=== PATIENT | male | born 1965 | race Caucasian/White ===

== ENCOUNTER 2017-12-21 11:26 | Emergency (ER) | payer OTHER ==
--- NOTE | 2017-12-21 11:46 | EDPHY ---
H & P Stated Complaint: DYSPNEA WITH EXERTION/RX ABX BUT WAS TOLD SHOULD GET SCREENING EKG Time Seen by Provider: 12/21/17 11:46 HPI/ROS: CHIEF COMPLAINT: Dyspnea, hypertension HISTORY OF PRESENT ILLNESS: The patient presents to the ED for evaluation of chronic dyspnea he is been experiencing however worsening over the past week. The patient was diagnosed with Lyme disease after he developed a skin rash consistent with erythema migrans while in [place] earlier this summer. The patient has been on 2 antibiotics and is currently under the care of Lyme disease specialist. The patient reports he has been struggling with dyspnea for some time. The patient does have a history of hypertension but has noted markedly increasing blood pressure recently. He presents to the ED today requesting further workup. The patient denies any history of chest pain but does report increasing dyspnea on exertion. He denies PND, fever or cough. The patient has no complaints of acute arthralgias, asymmetric calf pain or swelling. REVIEW OF SYSTEMS: A comprehensive 10 point review of systems is otherwise negative aside from elements mentioned in the history of present illness. Source: Patient - Personal History Current Tetanus/Diphtheria Vaccine: Yes - Medical/Surgical History Hx Asthma: No Hx Chronic Respiratory Disease: No Hx Diabetes: No Hx Cardiac Disease: No Hx Renal Disease: No Hx Cirrhosis: No Hx Alcoholism: No Hx HIV/AIDS: No Hx Splenectomy or Spleen Trauma: No Other PMH: HTN/DEPRESSION - Social History Smoking Status: Never smoked - Physical Exam Exam: General Appearance: Alert, no distress Eyes: Pupils equal and round no pallor or injection ENT, Mouth: Mucous membranes moist Respiratory: There are no retractions, lungs are clear to auscultation Cardiovascular: Regular rate and rhythm Gastrointestinal: Abdomen is soft and nontender, no masses, bowel sounds normal Neurological: A&O, normal motor function, normal sensory exam, normal cranial nerves Skin: Warm and dry, no rashes Musculoskeletal: Neck is supple nontender Extremities: symmetrical, full range of motion Psychiatric: Patient is oriented X 3, there is no agitation Constitutional: Initial Vital Signs Temperature (C) 37.1 C 12/21/17 11:29 Heart Rate 88 12/21/17 11:29 Respiratory Rate 18 12/21/17 11:29 Blood Pressure 200/137 H 12/21/17 11:29 O2 Sat (%) 96 12/21/17 11:29 O2 Delivery Mode Room Air Allergies/Adverse Reactions: No Known Allergies Allergy (Unverified 12/21/17 11:28) Home Medications: Medication Instructions Recorded Azithromycin 12/21/17 Cefdinir 12/21/17 Prozac 10 MG (*) 12/21/17 Medical Decision Making - Diagnostics EKG Interpretation: EKG: Complete interpretation has been separately recorded in the [facility] archive. Summary impression: Sinus rhythm, rate 84, no ischemic changes noted Imaging Results: Imaging Impressions Chest X-Ray 12/21/17 12:08 Impression: No acute findings in the chest. ED Course/Re-evaluation: The patient presents the emergency department with increasing dyspnea over the past several months. The patient was noted to be hypertensive upon arrival with systolic blood pressure in the 200-230 range. The patient's EKG demonstrates no evidence of ischemia. He has no hypoxemia. The patient's chest x-ray demonstrates no evidence of heart failure. Patient's troponin is normal. The patient's blood pressure did come down to 180/120 in the emergency department. I did curbside Dr. Deleon from Cardiology. The patient will be started on 5 mg of Norvasc today. The patient will purchase a blood pressure cuff monitor. The patient is interested in establishing primary care here in [facility]. He does not have a primary care provider. He has been referred to Dr. Serrato at the [facility] for a follow-up visit. The patient has been advised to return to the ED for any markedly worsening chest pain or shortness of breath. Differential Diagnosis: Differential diagnosis considered includes pneumonia, pneumothorax, myocardial infarction, congestive heart failure, primary hypertension - Data Points Laboratory Results: Laboratory Results 12/21/17 11:56 12/21/17 11:56 12/21/17 12/21/17 11:56 11:56 WBC 7.99 10^3/uL 10^3/uL (3.80-9.50) RBC 5.32 10^6/uL 10^6/uL (4.40-6.38) Hgb 15.4 g/dL g/dL (13.7-17.5) Hct 43.2 % % (40.0-51.0) MCV 81.2 fL L fL (81.5-99.8) MCH 28.9 pg pg (27.9-34.1) MCHC 35.6 g/dL g/dL (32.4-36.7) RDW 12.9 % % (11.5-15.2) Plt Count 281 10^3/uL 10^3/uL (150-400) MPV 10.3 fL fL (8.7-11.7) Neut % (Auto) 54.0 % % (39.3-74.2) Lymph % (Auto) 34.9 % % (15.0-45.0) [place] % (Auto) 7.4 % % (4.5-13.0) Eos % (Auto) 2.8 % % (0.6-7.6) Baso % (Auto) 0.6 % % (0.3-1.7) Nucleat RBC Rel Count 0.0 % % (0.0-0.2) Absolute Neuts (auto) 4.32 10^3/uL 10^3/uL (1.70-6.50) Absolute Lymphs (auto) 2.79 10^3/uL 10^3/uL (1.00-3.00) Absolute Monos (auto) 0.59 10^3/uL 10^3/uL (0.30-0.80) Absolute Eos (auto) 0.22 10^3/uL 10^3/uL (0.03-0.40) Absolute Basos (auto) 0.05 10^3/uL 10^3/uL (0.02-0.10) Absolute Nucleated RBC 0.00 10^3/uL 10^3/uL (0-0.01) Immature Gran % 0.3 % % (0.0-1.1) Immature Gran # 0.02 10^3/uL 10^3/uL (0.00-0.10) Sodium 140 mEq/L mEq/L (135-145) Potassium 4.0 mEq/L mEq/L (3.3-5.0) Chloride 104 mEq/L mEq/L (97-110) Carbon Dioxide 26 mEq/l mEq/l (22-31) Anion Gap 10 mEq/L mEq/L (6-14) BUN 19 mg/dL mg/dL (7-23) Creatinine 0.7 mg/dL mg/dL (0.7-1.3) Estimated GFR > 60 Glucose 102 mg/dL H mg/dL (70-100) Calcium 10.1 mg/dL mg/dL (8.5-10.4) Troponin I < 0.012 ng/mL ng/mL (0.000-0.034) NT-Pro-B Natriuret Pep 26 pg/mL pg/mL (0-125) Medications Given: Discontinued Medications Amlodipine Besylate (Norvasc) 5 mg PO EDNOW ONE Stop: 12/21/17 13:11 Last Admin: 12/21/17 13:21 Dose: 5 mg Departure - Departure Disposition: Home, Routine, Self-Care Clinical Impression: Hypertension Condition: Good Instructions: Hypertension (ED) Additional Instructions: 1. Please begin Norvasc once a day as prescribed. I do recommend getting a blood pressure monitor and keeping a log of your blood pressure each morning and night. 2. Please contact Dr. Serrato to schedule a primary care visit within the next week. Please be sure to tell her that you were in the emergency department and referred to her office for a ER follow-up. 3. Return to the ED for markedly worsening chest pain, shortness of breath or other concerns. Referrals: Aundrea Serrato MD [[facility] Primary Care Provider] - As per Instructions
[2017-12-21 12:14] LABS: PLATELET COUNT 281 10^3/uL (150-400)
[2017-12-21] MEDS ORDERED: amLODIPine BESYLATE 5 MG TAB PO ONE (13:10)
--- NOTE | 2017-12-21 13:40 | CPEKG ---
Test Reason : OPEN Blood Pressure : / mmHG Vent. Rate : 084 BPM Atrial Rate : 084 BPM P-R Int : 179 ms QRS Dur : 106 ms QT Int : 379 ms P-R-T Axes : 050 -09 046 degrees QTc Int : 449 ms Sinus rhythm Confirmed by Warren Lind ([id number]) on 12/21/2017 1:39:37 PM Referred By: Confirmed By:Warren Lind
[2017-12-21 13:58] VITALS: BP 182/117
== END 2017-12-21 13:58 | disposition home or self-care (01) ==
DX: I10 Essential (primary) hypertension (principal); R06.09 Other forms of dyspnea; A69.20 Lyme disease, unspecified

== ENCOUNTER 2018-01-29 05:31 | Emergency (ER) | payer OTHER ==
--- NOTE | 2018-01-29 06:06 | EDPHY ---
H & P Stated Complaint: possible blood clot in L upper arm Time Seen by Provider: 01/29/18 05:48 HPI/ROS: HPI The patient presents with left arm edema and pain for the last 2-3 days which has gotten progressively worse. He is currently undergoing treatment for chronic Lyme disease with 3 times weekly IV injections into his left arm. This is occurring in [place]. He does not have any redness or warmth of the arm. He has not had any fevers. He says about 5 years ago he had history of similar and was admitted to the hospital for 2 days but was unsure if he received anticoagulation. He denies any other symptoms.. REVIEW OF SYSTEMS 10 systems were reviewed and negative with the exception of the elements mentioned in the history of present illness. PMHx: Recent diagnosis of chronic Lyme disease receiving IV antibiotic infusions, recent diagnosis of hypertension Soc Hx: Living in between [place] and [place] PHYSICAL General Appearance: Alert, no distress Eyes: Pupils equal and round no pallor or injection ENT, Mouth: Mucous membranes moist Respiratory: There are no retractions, lungs are clear to auscultation Cardiovascular: Regular rate and rhythm Gastrointestinal: Abdomen is soft and non-tender, no masses, bowel sounds normal Neurological: A&O, moves all extremities Skin: Warm and dry, no rashes Musculoskeletal: Neck is supple non tender Extremities: Left upper arm is slightly tender to palpation in medial aspect with no overlying skin changes, there is mild edema, there is 2+ radial pulses Psychiatric: Patient is oriented X 3, there is no agitation Source: Patient Exam Limitations: No limitations - Personal History Current Tetanus/Diphtheria Vaccine: Yes Current Tetanus Diphtheria and Acellular Pertussis (TDAP): Yes - Medical/Surgical History Hx Asthma: No Hx Chronic Respiratory Disease: No Hx Diabetes: No Hx Cardiac Disease: No Hx Renal Disease: No Hx Cirrhosis: No Hx Alcoholism: No Hx HIV/AIDS: No Hx Splenectomy or Spleen Trauma: No Other PMH: HTN/DEPRESSION - Social History Smoking Status: Current some day smoker Constitutional: Initial Vital Signs Temperature (C) 36.6 C 01/29/18 05:37 Heart Rate 63 01/29/18 05:37 Respiratory Rate 16 01/29/18 05:37 Blood Pressure 162/95 H 01/29/18 05:37 O2 Sat (%) 96 01/29/18 05:37 O2 Delivery Mode Room Air Allergies/Adverse Reactions: Beef Containing Products [beef] Allergy (Verified 01/29/18 05:36) Milk Containing Products [dairy] Allergy (Verified 01/29/18 05:36) Home Medications: Medication Instructions Recorded Azithromycin 12/21/17 Cefdinir 12/21/17 Prozac 10 MG (*) 12/21/17 amLODIPine BESYLATE [Norvasc 5 mg 5 mg PO DAILY #30 tab 12/21/17 (*)] Rivaroxaban [Xarelto] 1 each PO ONCE 30 Days tab.ds.pk 01/29/18 Medical Decision Making - Diagnostics Imaging Results: DVT study of left upper extremity demonstrates clots in the basilic and cephalic veins, discussed with Dr. Olmedo of Radiology. Imaging: Discussed imaging studies w/ on call Radiologist, I viewed and interpreted images myself Differential Diagnosis: 52-year-old man with left arm pain and swelling for the last several days in the setting of frequent IV antibiotics to the left arm for the last 3-4 weeks for treatment of chronic Lyme disease. He may have had a prior DVT of this arm about 5 years ago though it is unclear. Differential diagnosis includes DVT, superficial thrombophlebitis, less likely cellulitis. In the emergency department, ultrasound was performed which demonstrated blood clots sparing the deep system though fairly extensively throughout the superficial venous system. The patient does not have a indwelling IV line though has received IV placements very frequently over the last several weeks. This seems to be a provoked upper extremity DVT. I do not feel further testing is needed today. Because he is symptomatic and has fairly extensive superficial clots, we discussed risks and benefits of anticoagulation verses treating with supportive measures including NSAIDs, elevation. He would like to pursue anticoagulation to improve his symptoms. I will prescribe him 1 month of Xarelto. I have explained that he will definitely need follow-up with his primary care doctor in 1 months time. He may need ongoing treatment with anticoagulation at this point if he is still symptomatic. He may need repeat ultrasound to evaluate for clot burden. We discussed return precautions. Departure - Departure Disposition: Home, Routine, Self-Care Clinical Impression: Phlebitis of left upper extremity Condition: Good Instructions: Phlebitis (ED) Additional Instructions: I recommend you take a blood thinner for the next 1 month. After that you will have to see your primary care doctor. You may need to be on this medication for the next several months. You may need to have a repeat ultrasound as well. Referrals: Aundrea Serrato MD [Primary Care Provider] - As per Instructions Prescriptions: Rivaroxaban [Xarelto] 1 each PO ONCE 30 Days tab.ds.pk
[2018-01-29 06:55] VITALS: BP 138/75
== END 2018-01-29 06:54 | disposition home or self-care (01) ==
DX: I80.9 Phlebitis and thrombophlebitis of unspecified site (principal); R22.32 Localized swelling, mass and lump, left upper limb; A69.20 Lyme disease, unspecified; I10 Essential (primary) hypertension; F32.9 Major depressive disorder, single episode, unspecified; F17.200 Nicotine dependence, unspecified, uncomplicated; Z79.2 Long term (current) use of antibiotics

== ENCOUNTER 2018-01-31 15:06 | Emergency (ER) | payer OTHER ==
--- NOTE | 2018-01-31 15:33 | EDPHY ---
H & P Stated Complaint: DVT L upper arm 01/29--increased pain & swelling on xarelto - Medical/Surgical History Hx Asthma: No Hx Chronic Respiratory Disease: No Hx Diabetes: No Hx Cardiac Disease: No Hx Renal Disease: No Hx Cirrhosis: No Hx Alcoholism: No Hx HIV/AIDS: No Hx Splenectomy or Spleen Trauma: No Other PMH: HTN lyme disease. DEPRESSION - Social History Smoking Status: Current some day smoker Time Seen by Provider: 01/31/18 15:17 HPI/ROS: CHIEF COMPLAINT: Worsening Left arm pain HISTORY OF PRESENT ILLNESS: [52-year-old male history Lyme disease for which he receives 3 times weekly IV medication infusion do left arm in [place]. He spends his time between [facility] and [place]. He was seen the ER 3 days ago for complaints of left upper extremity pain, diagnosed with thrombus sparing the deep system so fairly extensively throughout superficial venous system with no history of indwelling IV line although receives regular IV placements thought to be provoked DVT. Because he was symptomatic with extensive superficial clots he was started on Xarelto. Due to pharmacy issues he was unable to start the prescription until today. He comes to the ER complaining of pain to his left bicep noting that previously the pain is primarily in his left antecubital fossa. He denies: Discoloration distally, paresthesia, chest pain, dyspnea, headache, nausea, vomiting PRIMARY CARE PROVIDER: Dr. Aundrea Serrato REVIEW OF SYSTEMS: 10 systems reviewed and negative with the exception of the elements mentioned in the history of present illness PAST MEDICAL & SURGICAL HISTORY: Lyme disease. 3 times weekly IV infusions SOCIAL HISTORY:Nonsmoker. Splits his time between [facility], [facility] PHYSICAL EXAM (Prior to examination, patient consented to physical exam, hands were washed and my usual and customary physical exam procedures followed) 1) GENERAL: Well-developed, well-nourished, alert and oriented. Appears to be in no acute distress. 2) HEAD: Normocephalic, atraumatic 3) HEENT: Pupils equal, round, reactive to light bilaterally. Sclera anicteric. Nasopharynx, oropharynx, clear, no lesions. 4) NECK: Full range of motion, no meningeal signs. 5) LUNGS: Clear auscultation bilaterally, no wheezes, no rhonchi, no retractions. 6) HEART: Regular rate and rhythm, no murmur, no heave, no gallop. 7) ABDOMEN: No guarding, no rebound, no focal tenderness, negative McBurney's, negative Serna's, negative Rovsing's, negative peritoneal sign, 8) MUSCULOSKELETAL: Left upper extremity: Soft compartments, tender to palpation left medial biceps and antecubital fossa. No crepitus. Normal coloration distally. Brisk pulses and brisk capillary refill distally. Normal temperature distally. 9) BACK: No CVA tenderness, no midline vertebral tenderness, no fluctuance, no step-off, no obvious trauma, no visual or palpable abnormality. 10) SKIN: No rash, no petechiae. 11) Psychiatric: Patient is oriented X 3, there is no agitation. DIFFERENTIAL DIAGNOSIS: In no particular include but limited to superficial vein thrombus, deep vein thrombus, septic DVT, compartment syndrome (Daryl,Musa Ynes) Constitutional: Initial Vital Signs Temperature (C) 36.7 C 01/31/18 15:10 Heart Rate 78 01/31/18 15:10 Respiratory Rate 18 01/31/18 15:10 Blood Pressure 178/100 H 01/31/18 15:10 O2 Sat (%) 92 01/31/18 15:10 O2 Delivery Mode Room Air Allergies/Adverse Reactions: Beef Containing Products [beef] Allergy (Verified 01/31/18 15:08) Milk Containing Products [dairy] Allergy (Verified 01/31/18 15:08) Home Medications: Medication Instructions Recorded Azithromycin 12/21/17 Cefdinir 12/21/17 Prozac 10 MG (*) 12/21/17 amLODIPine BESYLATE [Norvasc 5 mg 5 mg PO DAILY #30 tab 12/21/17 (*)] Rivaroxaban [Xarelto] 1 each PO ONCE 30 Days tab.ds.pk 01/29/18 Medical Decision Making - Diagnostics Imaging Results: Imaging Impressions Extremity Venous Study 01/31/18 15:29 Impression: 1. Persistent occlusive thrombus in the left basilic, radial, and ulnar veins. 2. Improvement in the degree of thrombus seen in the cephalic vein with persistent occlusive thrombus in the proximal/mid left forearm. ED Course/Re-evaluation: 3:30 p.m.: I reviewed the case with Dr. Drake Corrigan, secondary supervising physician in the ER. Will obtain repeat ultrasound to evaluate extent. Old medical records reviewed. (Musa Brito) 1720: Updated the patient about his ultrasound results. He is comfortable discharge. Ultrasound shows no new evidence of clot. Patient is stable. No chest pain or shortness of breath no pleuritic pain. Gave him his ultrasound report. The clot has actually also had some interval improvement. The patient like to go home. (Drake Corrigan) Departure - Departure Disposition: Home, Routine, Self-Care Clinical Impression: Arm vein blood clot Condition: Good Instructions: Phlebitis (ED) Additional Instructions: Keep taking your Xarelto medication as prescribed Warm compresses. Return emergency room if worsening arm swelling, pain questions or concerns. Referrals: Aundrea Serrato MD [Primary Care Provider] - 2-3 days, call for appt.
[2018-01-31 17:33] VITALS: BP 145/91
== END 2018-01-31 17:33 | disposition home or self-care (01) ==
DX: I82.712 Chronic embolism and thrombosis of superficial veins of left upper extremity (principal); I10 Essential (primary) hypertension; Z79.01 Long term (current) use of anticoagulants

== ENCOUNTER 2018-02-02 04:01 | Observation (INO) | payer OTHER ==
[2018-02-02] MEDS ORDERED: NS 1,000 ML IV ONE (04:09)
[2018-02-02] MEDS ORDERED: ASPIRIN EC 325 MG TAB PO ONE (04:18)
[2018-02-02] MEDS ORDERED: IOPAMIDOL (ISOVUE 370) 100 ML BTL IV ONE (04:18)
--- NOTE | 2018-02-02 04:18 | EDPHY ---
H & P Stated Complaint: Chest pain, abd cramping, current L arm blood clot Time Seen by Provider: 02/02/18 04:16 HPI/ROS: HPI CHIEF COMPLAINT: Left-sided chest pressure, as well as pleuritic pain. HISTORY OF PRESENT ILLNESS: This is a very pleasant 52-year-old male, he is visiting from [facility], he has been here for week, he often comes to [place] and sometimes has problems with altitude illness. Patient's recently diagnosed with a left upper extremity clot.. He presents to the emergency room for left-sided pressure pain as well as some mild pleuritic pain left side when he breathes in. He states this started 8:00 p.m. Last night it is now 4:00 a.m. In the morning. Denies any cardiovascular disease. He does have Lyme disease. For which she gets infusions 4. Which is caused his superficial left arm clot. Past Medical History: Superficial left arm clot, lying disease Past Surgical History: No recent surgery Social History: Lives in [facility]. Denies drugs alcohol tobacco. Family History: Noncontributory ROS REVIEW OF SYSTEMS: 10 Systems were reviewed and negative with the exception of the elements mentioned in the history of present illness. Exam Constitutional somewhat anxious, nontoxic, triage nursing summary reviewed, vital signs reviewed, awake/alert. Eyes normal conjunctivae and sclera, EOMI, PERRLA. HENT normal inspection, atraumatic, moist mucus membranes, no epistaxis, neck supple/ no meningismus, no raccoon eyes. Respiratory clear to auscultation bilaterally, normal breath sounds, no respiratory distress, no wheezing. Cardiovascular rate normal, regular rhythm, no murmur, no edema, distal pulses normal. Gastrointestinal soft, non-tender, no rebound, no guarding, normal bowel sounds, no distension, no pulsatile mass. Genitourinary no CVA tenderness. Musculoskeletal no midline vertebral tenderness, full range of motion, no calf swelling, no tenderness of extremities, no meningismus, good pulses, neurovascularly intact. Skin pink, warm, & dry, no rash, skin atraumatic. Neurologic awake, alert and oriented x 3, AAOx3, moves all 4 extremities equally, motor intact, sensory intact, CN II-XII intact, normal cerebellar, normal vision, normal speech. Psychiatric normal mood/affect. Heme/Lymph/Immune no lymphadenopathy. Differential diagnosis includes but is not limited to: ACS, atypical chest pain , pneumothorax, pneumonia, pulmonary embolism, aortic dissection, congestive heart failure, tumor, musculoskeletal pain, esophageal pain, GERD, peptic ulcer disease, pancreatitis Medical Decision Making: Plan for this patient IV establishment with IV fluid bolus, chest x-ray, EKG, court recording monitor, troponin, CT angiogram chest, rule out ACS. Re-evaluation: EKG interpretation by me on record in rumr system. Impression time of EKG 4:10 a.m., sinus rhythm rate of 70, Early Re-lakia pattern. WHEN I COMPARE THIS TO HIS OLD EKG DATED 12/21/[address]Y. CT angiogram shows pulmonary embolism. Moderate burden. Left lower lobe pulmonary embolism with pleural effusion and right middle lobe pulmonary embolism. Patient need to be admitted for PE. DVT. 0618: I discussed the case in detail with Dr. Rashel Perera he is Oncology on- call. He recommends heparin bolus heparin drip. Admit to the hospitalist service who will consult on the patient. He would like he would like further workup for coagulation. Spoke with the hospitalist service at 7:[address] Quezada. Agrees to admit. ADmit for DVT/PE. Source: Patient - Personal History Current Tetanus Diphtheria and Acellular Pertussis (TDAP): Yes - Medical/Surgical History Hx Asthma: No Hx Chronic Respiratory Disease: No Hx Diabetes: No Hx Cardiac Disease: No Hx Renal Disease: No Hx Cirrhosis: No Hx Alcoholism: No Hx HIV/AIDS: No Hx Splenectomy or Spleen Trauma: No Other PMH: HTN lyme disease. DEPRESSION. Blood clot - Social History Smoking Status: Current some day smoker Constitutional: Initial Vital Signs Temperature (C) 36.6 C 02/02/18 04:04 Heart Rate 74 02/02/18 04:04 Respiratory Rate 17 02/02/18 04:04 Blood Pressure 134/94 H 02/02/18 04:04 O2 Sat (%) 96 02/02/18 04:04 O2 Delivery Mode Room Air Allergies/Adverse Reactions: Beef Containing Products [beef] Allergy (Verified 02/02/18 04:03) Milk Containing Products [dairy] Allergy (Verified 02/02/18 04:03) Home Medications: Medication Instructions Recorded Azithromycin 500 mg PO DAILY 02/02/18 Cefdinir [Omnicef (*)] 600 mg PO BID 02/02/18 FLUoxetine [Prozac 10 MG (*)] 10 mg PO DAILY 02/02/18 Herbals/Supplements -Info Only 1 ea PO DAILY 02/02/18 Lisinopril [Zestril 20 mg (*)] 20 mg PO DAILY 02/02/18 Olmesartan Medoxomil [Benicar 20 20 mg PO HS 02/02/18 mg (*)] Psyllium Husk [Fiber] 4 tab PO TID 02/02/18 Rivaroxaban [Xarelto 15mg (*)] 15 mg PO BID 02/02/18 Medical Decision Making - Data Points Laboratory Results: Laboratory Results 02/02/18 04:16 02/02/18 04:16 Medications Given: Enoxaparin Sodium (Lovenox) 100 mg SC BID [facility] Stop: 08/01/18 10:44 Last Admin: 02/02/18 21:41 Dose: 100 mg Fluoxetine HCl (Prozac) 10 mg PO DAILY [facility] Stop: 08/01/18 09:59 Last Admin: 02/02/18 11:29 Dose: 10 mg Ketorolac Tromethamine (Toradol) 15 mg IVP Q6HRS PRN PRN Reason: Pain, Breakthrough Stop: 02/07/18 11:59 Last Admin: 02/02/18 21:46 Dose: 15 mg Miscellaneous Medication (Psyllium Husk [Fiber]) 4 tab PO TID [facility] Stop: 08/01/18 15:59 Last Admin: 02/02/18 20:36 Dose: Not Given Discontinued Medications Aspirin Buffered (Aspirin Ec) 325 mg PO EDNOW ONE Stop: 02/02/18 04:19 Last Admin: 02/02/18 04:23 Dose: 325 mg Heparin Sodium (Porcine) (Heparin Injection) 0 unit IVP EDNOW ONE Stop: 02/02/18 06:18 Last Admin: 02/02/18 06:30 Dose: 7,600 units Sodium Chloride (Ns) 1,000 mls @ 0 mls/hr IV EDNOW ONE; Wide Open PRN Reason: Protocol Stop: 02/02/18 04:10 Last Admin: 02/02/18 04:24 Dose: 1,000 mls Heparin Sodium (Porcine) (Heparin 50 Units/Ml (Premix)) 500 mls @ 0 mls/hr IV EDNOW ONE; Per Protocol PRN Reason: Protocol Stop: 02/02/18 06:18 Last Admin: 02/02/18 06:31 Dose: 500 mls Rivaroxaban (Xarelto) 15 mg PO BID [facility] Stop: 08/01/18 09:59 Last Admin: 02/02/18 11:35 Dose: Not Given Point of Care Test Results: Chemistry 02/02/18 04:16 POC Troponin I 0.00 ng/mL ng/mL (0.00-0.08) Departure - Departure Disposition: [facility] Inpatient Acute Clinical Impression: Pulmonary embolism Qualifiers: Pulmonary embolism type: other Chronicity: acute Acute cor pulmonale presence: without acute cor pulmonale Qualified Code(s): I26.99 - Other pulmonary embolism without acute cor pulmonale Condition: Fair
[2018-02-02 04:33] LABS: PLATELET COUNT 211 10^3/uL (150-400)
[2018-02-02 04:41] LABS: INR 1.14 (0.83-1.16); PROTIME(PATIENT) 14.8 SEC (12.0-15.0)
[2018-02-02] MEDS ORDERED: HEPARIN 10,000 UNIT/10 ML MDV (1,000 UNIT/ML) IVP ONE (06:17)
[2018-02-02] MEDS ORDERED: HEPARIN/DEXTROSE 500 ML IV ONE (06:17)
--- NOTE | 2018-02-02 08:01 | CPEKG ---
Test Reason : OPEN Blood Pressure : / mmHG Vent. Rate : 070 BPM Atrial Rate : 071 BPM P-R Int : 184 ms QRS Dur : 112 ms QT Int : 391 ms P-R-T Axes : 042 -11 024 degrees QTc Int : [address] elev, probable normal early repol pattern Confirmed by Drake Corrigan ([id number]) on 02/02/2018 8:00:39 AM Referred By: Confirmed By:Drake Corrigan
[2018-02-02] MEDS ORDERED: RIVAROXABAN 15 MG TAB PO SCH (10:00)
--- NOTE | 2018-02-02 10:42 | ASMTCMCOM ---
CM Note CM Note Notes: Pts case discussed w/ WILDER Harris and Dr. Garduno. Pt is a 52 y/o man admitted for PE/DVT. Pt will most likely d/c independent when medically stable. No therapies ordered at this time. CM available for changes. Plan: Independent Date Signed: 02/02/2018 10:42 AM Electronically Signed By:HEATHER Reaves
--- NOTE | 2018-02-02 10:56 | GHP ---
DATE OF ADMISSION: 02/02/2018 CHIEF COMPLAINT: Pulmonary embolism, right upper extremity DVT. HISTORY OF PRESENT ILLNESS: A 52-year-old male with history of right upper extremity clot 5 years ago, presenting with shortness of breath and chest pain this morning. He arrived from [place] a week ago to visit his kids who live here. On the , he noted left arm swelling for 2-3 days. He presented to the ER and ultrasound showed venous thrombosis of the left basilic, cephalic, radial, and ulnar veins. Given the extent of the superficial clot, he was discharged on Xarelto. He did not start this medication until Monday. He returned to the ER on 01/31 with progressive pain in his upper arm. Repeat ultrasound showed occlusive clots of the left basilic/radial and ulnar veins. He was discharged home to resume Xarelto. He awoke this morning with shortness of breath, left-sided chest pain that was worse with deep inspiration. No dizziness or lightheadedness. He reports intense symptoms associated with his Lyme disease over the past 6 months, specifically fatigue. He has been undergoing IV treatments 3 times a week, vitamins, and other (cocktails) as he describes. He has not had a permanent catheter in place like a PIC, they just do peripheral IVs with infusions. REVIEW OF SYSTEMS: I completed a 10-point review of systems, negative except as noted in HPI. PAST MEDICAL HISTORY: 1. Lyme disease, currently treated in [place]. 2. Left upper extremity DVT 5 years ago. 3. Hypertension. 4. Hyperlipidemia. PAST SURGICAL HISTORY: None. FAMILY HISTORY: Mother had a stroke. SOCIAL HISTORY: Lives in [place]. He is here visiting his kids, who live in [place]. Heavy smoker, quit 15 years ago. Was a heavy drinker, quit 15 years ago. ALLERGIES: Beef, milk. HOME MEDICATIONS: Fiber, herbal supplement, Benicar 20 mg daily, lisinopril 20 daily, Xarelto 15 mg twice daily, Prozac 10. PHYSICAL EXAMINATION: VITAL SIGNS: Temperature 36.8, blood pressure 137/88, heart rate in the 70s, respirations 18, 96% on room air. GENERAL: No acute distress. HEENT: PERRLA. Moist mucous membranes. CV: Regular rate and rhythm. LUNGS: Clear, diminished at the bases. LABS: WBC 9, hemoglobin 13, hematocrit 41, platelets 211. Coags within normal. Sodium 142, potassium 4.4, chloride 106, carbon dioxide 28, creatinine 0.9, glucose 119, calcium 9.7. LFTs within normal. Troponin 0.00. BNP is 86. CTA: Small volume pulmonary artery emboli, level of distal main right pulmonary artery near the junction of the right middle lobe branch and moderate volume. Pulmonary artery emboli, posterior medial basilar segments of the left lower lobe. Small pleural effusion. Mild left-sided coronary disease. Left adrenal gland hyperplasia. EKG is personally reviewed by me; early repolarization, Q-wave lead 3. ASSESSMENT AND PLAN: 1. Acute pulmonary embolism: suspect PE was present prior to today's visit. Would not consider him a Xarelto failure as he just started treatment on Monday. I discussed this with Dr. Perera, and will resume Xarelto after a day of [place]. Given that this is unprovoked and second clot, would recommend "lifelong" anticoagulation. Should undergo normal screening, including colonoscopy, PSA, and possible hypercoagulable workup. He is hemodynamically stable with a normal troponin and BNP. Monitor on telemetry. 2. Hypertension: on both Benicar and Lisinopril. Stop Benicar with risk ARISTEO and hyperkalemia. Can increase Lisinopril if needed. 3. Lyme disease. He receives care in [place]. 4. Diet, regular. 5. DVT prophylaxis, on Xarelto. DISPOSITION: Warrants observation admission for telemetry. Can likely discharge if stable in the morning. /[id number]/MODL MTDD
--- NOTE | 2018-02-02 11:21 | PDCONSULT ---
[facility] Note: Patient is a 52-year-old male here for evaluation of pleurisy found to have a pulmonary embolus. Patient was seen on 01/29/2018 for left arm edema and pain for the previous 2-3 days. An ultrasound at that time showed venous thrombosis of the left basilic cephalic ulnar veins without thrombosis of the brachial or proximal veins. Given he was asymptomatic he was prescribed Xarelto however he was unable to obtain at this medicine until 01/31/2018. He was actually seen again on 2017 in the emergency room for worsening left upper extremity pain and swelling and a duplex at that time did not show any extension of thrombosis. He subsequently presented 02/02/2018 with symptoms of pleurisy subsequently found to have a pulmonary embolus. He reports symptoms began around the evening of . Patient reports feeling well. He denies fevers chills or drenching night sweats. He does report a 25 pound weight gain in the last year or so. He denies any bleeding other than perhaps some blood on the toilet paper the last few days since being on Xarelto. He denies melena or hematochezia. He denies hematuria. He is never had a colonoscopy. No antecedent to surgeries or procedures. No prolonged immobility other than a 4-hour plane ride from [facility] which she reports being relatively mobile during the flight. He is currently be treated for chronic Lyme's disease in [place] - they access the left arm for IV access. He thinks he had a superficial or deep vein thrombosis of the upper extremity roughly 6 years ago which also occurred roughly around the time he was receiving intravenous treatment Past medical history Hypertension Hyperlipidemia Past surgical history Patient denies Social history [id number] smoking history quit roughly 15 years ago. Patient splits his time between [facility] and [place]. He denies history of drug use or significant alcohol use. Family history: No family history of cancer or venous thrombosis Review of systems: A complete 14 point review of systems was obtained and found to be negative unless indicated in the history of the present illness Physical examination: Vital signs reviewed General: No acute distress nontoxic appearing male HEENT: Pupils equal round reactive to light no scleral icterus or conjunctival pallor is appreciated oral mucosa is moist without any evidence of oral pharyngeal lesions Cardiovascular: Regular in rate and rhythm without rubs thrills gallops or murmurs Chest: Clear to auscultation and percussion bilateral posterior lungs Abdomen: Soft nontender nondistended without any hepatosplenomegaly Extremities: Warm well perfused 2+ dorsalis pedis and radial pulses bilaterally no asymmetrical swelling of the lower extremities Neurologic cranial nerves II through XII are intact, alert and oriented x4 Medications and allergies reviewed in the electronic medical record Laboratory studies reviewed in the medical record Assessment and plan: Patient is a 52-year-old male with recent diagnosis of superficial venous thrombosis of the left upper extremity subsequently found to have a PE and pulmonary infarction. Problem #1 - pulmonary embolism Patient has a pasty score of 61 which is class I and is low risk in regards to 30-day mortality. I did not feel that this represents primary failure with Xarelto given he was on the medicine for at maximum 1 day before developing symptoms of pulmonary embolism. I do not feel that his thrombosis/pulmonary embolus was extension or embolism of his left upper extremity superficial venous thrombosis given the relatively low likelihood of upper extremity DVTs causing PEs. This does not appear to be a provoked event given no major risk factors in the preceding months. He did have some minor risk factors including a 4hour flight from [facility] to [place]. His superficial venous thrombosis appears to be related to IV catheterization in that arm. Given the unprovoked nature of his thrombosis I would check antiphospholipid antibodies as well as looking for lupus anticoagulant. Otherwise I think it may be santana to do indefinite anticoagulation given the very high risk of recurrence and man with unprovoked VT E. I think continuing Xarelto is reasonable and he can follow-up with his doctors in [place] or [facility] for which he spends the majority of his time to discuss indefinite anticoagulation and for ongoing assessment of the risks and benefits of lifelong/indefinite anticoagulation. Problem #2left adrenal hyperplasia Given patient's myriad of symptoms which are being ascribe to Lyme's disease as well as his labile hypertension/recent diagnosis of severe hypertension. These symptoms could represent hypercortisolism but is unlikely. This incidental finding should be considered/remembered in future evaluations.
[2018-02-02] MEDS: FLUoxetine 10 MG CAP PO SCH ×2 (11:27→11:29)
[2018-02-02] MEDS: ENOXAPARIN 100 MG/ML SYR SC SCH ×2 (11:29→21:41)
[2018-02-02] MEDS: KETOROLAC 15 MG/1 ML SDV IVP PRN ×2 (12:49→21:46)
[2018-02-03] MEDS: KETOROLAC 15 MG/1 ML SDV IVP PRN (06:27)
[2018-02-03 07:13] VITALS: BP 137/90
[2018-02-03] MEDS ORDERED: Herbals/Supplements -Info Only PO SCH (09:00)
[2018-02-03] MEDS: FLUoxetine 10 MG CAP PO SCH (09:02)
[2018-02-03] MEDS: ENOXAPARIN 100 MG/ML SYR SC SCH (09:03)
[2018-02-03] MEDS ORDERED: LISINOPRIL 20 MG TAB PO SCH (09:45)
--- NOTE | 2018-02-03 10:16 | GDS ---
DISCHARGE DIAGNOSES: 1. Acute pulmonary emboli. 2. Left upper extremity DVT. 3. Hypertension. 4. Lyme disease. 5. Hyperlipidemia. 6. Adrenal hyperplasia. HISTORY OF PRESENT ILLNESS: A 52-year-old male with a history of a left upper extremity clot 5 years ago, presenting with shortness of breath and chest pain on the day of admission. He arrived from [facility] a week ago to visit his kids. He noted increased left arm swelling for 2-3 days and thus presented to [facility] on the . At that time, an ultrasound showed venous thromboses of the left basilic/cephalic/radial/ulnar veins which were superficial. Given the extent of the clot, he was discharged on Xarelto. Due to insurance issues, he was not able to fill this until Monday. He returned to the ER on 01/31 with progressive pain in his upper arm. At that time, an ultrasound showed occlusive clots of the same arm. He was discharged home, to resume Xarelto. Next, he awoke yesterday with shortness of breath and left-sided chest pain, worse with deep inspiration. No dizziness or lightheadedness. HOSPITAL COURSE BY PROBLEM: 1. Acute pulmonary embolism: CT showed small volume pulmonary artery emboli of the distal main right pulmonary near the junction of the right middle lobe branch, pulmonary emboli to the posterior medial posterior segments of the left lower lobe, and a small pleural effusion. Suspect PE was present prior to admission. Would not consider him a Xarelto failure as he just started treatment on Monday. I discussed the case with Dr. Perera who evaluated him, and he agrees. Given that this was unprovoked and his second clot, would recommend lifelong anticoagulation. He had a normal colonoscopy 2 years ago. He needs a PSA. Hypercoagulable panel is pending. He has been hemodynamically stable here, with a normal troponin and BNP. 2. Hypertension: Was on both Benicar and lisinopril as an outpatient. Stopped Benicar with the risk of ARISTEO and hyperkalemia: Can increase lisinopril if needed. 3. Lyme disease: Continue his treatment in [place] 4. Adrenal hyperplasia: He can follow up with Endocrinology. Repeat imaging. DISPOSITION: The patient is stable for discharge home. MEDICATIONS: 1. Stop Benicar. 2. Continue Xarelto 15 mg b.i.d. for 3 weeks and then transition to 20 mg daily. Provided rx. FOLLOW UP: 1. Primary care physician for blood pressure. 2. PSA. 3. Adrenal hyperplasia. 4. Hypercoaguable panel pending PHYSICAL EXAM: VITAL SIGNS: Today, temperature 37.1, blood pressure 137/90, heart rate is in the 80s, respirations 18, and 93% on room air. GENERAL: In no acute distress. HEENT: PERRLA. Moist mucous membranes. CV: Regular rate and rhythm. No lower extremity edema. GENITOURINARY: No Reddy. MUSCULOSKELETAL: Moving all 4 extremities. NEUROLOGIC: 2 through 12 are intact. PSYCHIATRIC: Alert and oriented x3. Time spent on discharge was greater 30 minutes at the bedside, explaining the medications and the followup plan with the patient and girlfriend and coordinating discharge. /[id number]/MODL MTDD
== END 2018-02-03 10:57 | disposition home or self-care (01) ==
LOC: F2W 07:59
PROVIDERS: ADMIT Family Medicine; ATTEND Internal Medicine
DX: I26.99 Other pulmonary embolism without acute cor pulmonale (principal); I74.2 Embolism and thrombosis of arteries of the upper extremities; A69.20 Lyme disease, unspecified; E27.8 Other specified disorders of adrenal gland; F32.9 Major depressive disorder, single episode, unspecified; I10 Essential (primary) hypertension; E78.5 Hyperlipidemia, unspecified; Z87.891 Personal history of nicotine dependence
CPT/HCPCS: 71045; 71275; 93005; 96361; 96372; 96374; 96375; 96376; 99285; G0378; 82232-90; 84484-PO; 85635-90; 85670-90; 86147-90; J1644; J1650; J1885; Q9967